=== PATIENT | female | born 1995 | race Caucasian/White ===

== ENCOUNTER 2017-07-18 14:37 | Emergency (ER) | payer MEDICAID ==
[2017-07-18 14:38] VITALS: BMI 34.2
[2017-07-18] MEDS ORDERED: Albuterol-Ipratrop 3 mg / 0.5 (3 ml) UD ONE ×2 (16:00→18:15)
--- NOTE | 2017-07-18 16:44 | C.PDOC ---
History Of Present Illness 22 y/o female with PMHx of Asthma presents to ED with complaints of sob since yesterday and with 1 week history of abdominal pain worse after eating with associated nausea. Patient also complaints of vaginal spotting last week. Patient states she tried to use inhaler with no relief which prompted visit to ED and reports she has scheduled appoint with PMD tomorrow and with [facility] RN CARE COORDINATOR next Monday. LMP 06/25 Time Seen by Provider: 07/18/17 15:53 Chief Complaint (Nursing): Abdominal Pain History Per: Patient History/Exam Limitations: no limitations Onset/Duration Of Symptoms: Days Current Symptoms Are (Timing): Still Present Past Medical History Reviewed: Historical Data, Nursing Documentation, Vital Signs Vital Signs: Last Vital Signs Temp 98.6 F 07/18/17 18:55 Pulse 82 07/18/17 18:55 Resp 16 07/18/17 18:55 BP 106/78 07/18/17 18:55 Pulse Ox 96 07/20/17 11:16 - Medical History PMH: Asthma, Depression Surgical History: No Surg Hx - [facility] Procedures GROUP PSYCHOTHERAPY (05/20/15) INDIVIDUAL PSYCHOTHERAPY, SUPPORTIVE (05/20/15) MEDICATION MANAGEMENT (05/20/15) RABIES VACCINATION (06/29/13) Family History: States: No Known Family Hx - Social History Hx Tobacco Use: No Hx Alcohol Use: No Hx Substance Use: No - Immunization History Hx Tetanus Toxoid Vaccination: Yes Hx Influenza Vaccination: No Hx Pneumococcal Vaccination: No Review Of Systems Constitutional: Negative for: Fever, Chills Respiratory: Positive for: Shortness of Breath Gastrointestinal: Positive for: Nausea, Abdominal Pain. Negative for: Vomiting , Diarrhea Genitourinary: Negative for: Dysuria, Vaginal Discharge, Vaginal Bleeding Musculoskeletal: Negative for: Back Pain Skin: Negative for: Rash Physical Exam - Physical Exam Additional Physical Exam Comments: Patient examined after x1 neb treatment Constitutional: No acute distress. WDWN. lying on stretcher comfortably with friend, talking, using phone. Head: Normocephalic. Atraumatic. Eyes: PERRL. EOMI. ENT: Moist mucous membranes. Neck: Supple. Cardiovascular: Regular rate and rhythm. Chest: No tenderness. Respiratory: Clear to auscultation bilaterally. no wheezing noted (examined after nebulizer treatment received) GI: Soft. Nontender. Nondistended. Normoactive bowel sounds. No rebound. No guarding. Back: No CVA and no mid-line tenderness. Musculoskeletal: No tenderness or swelling of extremities. Skin: No rash. Neurologic: Alert, no focal deficit. ED Course And Treatment O2 Sat by Pulse Oximetry: 96 (RA) Pulse Ox Interpretation: Normal Medical Decision Making Medical Decision Making: pt with clear lungs after neb tx.. pt feels much better. abdomen soft, nd, nt. will check ua and upreg. upreg neg, ua neg for infection. lungs cta bilaterally, abdomen non tender, will d/c with mdi and pepcid. pt has f/u appt tomorrow and next week. Disposition Counseled Patient/Family Regarding: Studies Performed, Diagnosis, Need For Followup, Rx Given - Disposition Referrals: Emelina Best [Staff Provider] - Disposition: HOME/ ROUTINE Disposition Time: 18:36 Condition: IMPROVED Additional Instructions: Please use two puffs from inhaler every 4-6 hours as needed. Avoind junk food, greasy food.Take Pepcid once a day. Follow up as scheduled. 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 - Scribe Statement The provider has reviewed the documentation as recorded by the Kristi Desir All medical record entries made by the Kristi were at my direction and personally dictated by me. I have reviewed the chart and agree that the record accurately reflects my personal performance of the history, physical exam, medical decision making, and the department course for this patient. I have also personally directed, reviewed, and agree with the discharge instructions and disposition.
[2017-07-18 18:28] LABS: SQUAMOUS EPITHIAL 10 /hpf (0-5); URINE BACTERIA RARE (<OCC); URINE BILIRUBIN NEGATIVE (NEGATIVE); URINE BLOOD NEGATIVE (NEGATIVE); URINE CLARITY Hazy (Clear); URINE COLOR Yellow (YELLOW); URINE GLUCOSE (UA) NORMAL (Normal); URINE LEUKOCYTE ESTERASE NEG Leu/uL (Negative); URINE NITRATE NEGATIVE (NEGATIVE); URINE PROTEIN NEGATIVE (NEGATIVE); URINE UROBILINOGEN NORMAL mg/dL (0.2-1.0)
[2017-07-18 19:18] VITALS: BP 106/78; PULSE 82; RESP 16; TEMP 98.6
[2017-07-20 11:15] VITALS: O2SAT 96
== END 2017-07-18 19:00 | disposition home or self-care (01) ==
LOC: C.ER 14:37
DX: J45.909 Unspecified asthma, uncomplicated (principal); K29.70 Gastritis, unspecified, without bleeding

== ENCOUNTER 2017-07-19 00:01 | Emergency (ER) | payer MEDICAID, OTHER ==
[2017-07-19 00:01] VITALS: BMI 34.2
[2017-07-19 00:22] VITALS: RESP 16
[2017-07-19] MEDS ORDERED: Aluminum Hydroxide/Magnesium Hydroxide Susp (30 mL) PO STA (01:04)
--- NOTE | 2017-07-19 01:06 | C.PDOC ---
History Of Present Illness 22 year old female with 1 week history of abdominal pain with associated nausea. Patient states she was seen in ED earlier today for asthma and treated with nebulizer and Pepcid. Patient states when she got home and ate the pain got worse in epigastric region, sharp in nature and associated with nausea. Patient reports she has scheduled appoint with PMD tomorrow. Denies diarrhea or vomiting. Time Seen by Provider: 07/19/17 00:55 Chief Complaint (Nursing): Abdominal Pain History Per: Patient History/Exam Limitations: no limitations Onset/Duration Of Symptoms: Hrs Current Symptoms Are (Timing): Still Present Location Of Pain/Discomfort: Epigastric Radiation Of Pain To:: None Quality Of Discomfort: Unable To Describe Associated Symptoms: Nausea. denies: Fever, Chills, Vomiting, Diarrhea Exacerbating Factors: None Alleviating Factors: None Recent travel outside of the [place]: No Abnormal Vaginal Bleeding: No Past Medical History Reviewed: Historical Data, Nursing Documentation, Vital Signs Vital Signs: Last Vital Signs Temp 98.9 F 07/19/17 02:31 Pulse 84 07/19/17 02:31 Resp 16 07/19/17 02:31 BP 104/65 07/19/17 02:31 Pulse Ox 99 07/19/17 02:31 - Medical History PMH: Asthma, Depression - [facility] Procedures GROUP PSYCHOTHERAPY (05/20/15) INDIVIDUAL PSYCHOTHERAPY, SUPPORTIVE (05/20/15) MEDICATION MANAGEMENT (05/20/15) RABIES VACCINATION (06/29/13) Family History: States: Unknown Family Hx - Social History Hx Tobacco Use: No Hx Alcohol Use: No Hx Substance Use: No - Immunization History Hx Tetanus Toxoid Vaccination: Yes Hx Influenza Vaccination: No Hx Pneumococcal Vaccination: No Review Of Systems Constitutional: Negative for: Fever, Chills Gastrointestinal: Positive for: Nausea, Abdominal Pain. Negative for: Vomiting , Diarrhea Physical Exam - Physical Exam Appears: Non-toxic, No Acute Distress Skin: Normal Color, Warm, Dry Head: Atraumatic, Normacephalic Eye(s): bilateral: Normal Inspection Oral Mucosa: Moist Neck: Normal ROM Chest: Symmetrical, No Tenderness Cardiovascular: Rhythm Regular Respiratory: Normal Breath Sounds, No Rales, No Rhonchi, No Wheezing Gastrointestinal/Abdominal: Soft, No Tenderness, No Distention, No Guarding Extremity: Bilateral: Atraumatic, Normal Color And Temperature, Normal ROM Neurological/Psych: Oriented x3, Normal Speech, Other (No focal deficits) ED Course And Treatment - Laboratory Results Result Diagrams: 07/19/17 01:32 07/19/17 01:32 Lab Interpretation: No Acute Changes O2 Sat by Pulse Oximetry: 97 (Room air) Pulse Ox Interpretation: Normal Medical Decision Making Medical Decision Making: Patient seen in ED yesterday, UA and negative. Patient treated with nebulizer and pepcid and discharge. Plan: * Blood work * Maalox * Pepcid * Toradol Labs reviewed and unremarkable. Patient reevaluated and resting comfortably in no distress. She is watching show on her ipad, laughing with her boyfriend at bedside and drinking iced tea. Patient feels comfortable going home and will be discharged. Patient given follow up instructions. Instructed to return to ER if symptoms worsen or new symptoms arise. Disposition Counseled Patient/Family Regarding: Diagnosis, Need For Followup, Rx Given - Disposition Referrals: [facility] [Outside] [email or web address] [Outside] Disposition: HOME/ ROUTINE Disposition Time: 02:11 Condition: IMPROVED Additional Instructions: Your labs were normal. Take omeprazole daily. Follow up with your primary doctor and GI for further evaluation. Prescriptions: Omeprazole 20 mg PO DAILY #20 capsule. 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 - Scribe Statement The provider has reviewed the documentation as recorded by the Scribолег Ovalle All medical record entries made by the Scribe were at my direction and personally dictated by me. I have reviewed the chart and agree that the record accurately reflects my personal performance of the history, physical exam, medical decision making, and the department course for this patient. I have also personally directed, reviewed, and agree with the discharge instructions and disposition.
[2017-07-19 01:37] LABS: BASO % 0.2 % (0.0-2.0); EOS # 0.1 K/uL (0.0-0.7); EOS % 1.8 % (0.0-4.0); HEMOGLOBIN 14.3 g/dL (11.0-16.0); LYMPH # 1.5 K/uL (1.0-4.3); LYMPH % 23.1 % (20.0-40.0); MEAN CELL VOLUME 84.9 fL (81.0-99.0); MEAN CORPUSCULAR HEMOGLOBIN 28.9 pg (27.0-31.0); MEAN PLATELET VOLUME 7.7 fL (7.2-11.7); MONO # 0.3 K/uL (0.0-0.8); MONO % 5.5 % (0.0-10.0); NEUT # 4.4 K/uL (1.8-7.0); NEUT % 69.4 % (50.0-75.0); RBC 4.95 Mil/uL (3.80-5.20); RED CELL DISTRIBUTION WIDTH 13.2 % (11.5-14.5); WHITE BLOOD COUNT 6.3 K/uL (4.8-10.8)
[2017-07-19] MEDS ORDERED: Aluminum Hydroxide/Magnesium Hydroxide Susp (30 mL) ONE (01:39)
[2017-07-19 01:54] LABS: ALB/GLOB RATIO 1.4 (1.0-2.1); ALBUMIN 4.5 g/dL (3.5-5.0); ALT/SGPT 40 U/L (9-52); AST/SGOT 22 U/L (14-36); BLOOD UREA NITROGEN 13 mg/dL (7-17); CALCIUM 8.6 mg/dl (8.6-10.4); GFR AFRICAN-AMERICAN > 60; GFR NON-AFRICAN AMERICAN > 60; LIPASE 74 U/L (23-300)
[2017-07-19 02:31] VITALS: BP 104/65; PULSE 84; TEMP 98.9
[2017-07-19 02:56] VITALS: O2SAT 97
== END 2017-07-19 02:52 | disposition home or self-care (01) ==
LOC: C.ER 00:01
DX: K29.70 Gastritis, unspecified, without bleeding (principal)
CPT/HCPCS: 80053; 83690; 85025; 96374; 96375; 99283; J1885

== ENCOUNTER 2018-04-25 19:23 | Emergency (ER) | payer SELFPAY ==
[2018-04-25 19:23] VITALS: BMI 34.2
[2018-04-25 19:32] VITALS: BP 135/81; PULSE 68; RESP 19; TEMP 98.8; O2SAT 98
[2018-04-25] MEDS ORDERED: Sodium Chloride 0.9% 1,000 ML IV ONE (20:49)
--- NOTE | 2018-04-25 20:50 | C.PDOC ---
History Of Present Illness 23 year old female presents to the ED for evaluation of headache to the frontal area associated with photophobia, dizziness, and nausea that began today. Patient reports nausea for the last 4 days and decreased food intake. Notes she has been going through a stressful time concerning house since she was recently evicted from her home. Also reports finishing her menses yesterday which lasted 1 week, normally they last 3 days, prior to her last menses states she missed her period for 3 months and believed to be . Denies fever, chills, vomiting, abdominal pain, shortness of breath, chest pain, cough and any other associated symptoms. Time Seen by Provider: 04/25/18 20:42 Chief Complaint (Nursing): Dizziness/Lightheaded History Per: Patient History/Exam Limitations: no limitations Onset/Duration Of Symptoms: Hrs Current Symptoms Are (Timing): Still Present Past Medical History Reviewed: Historical Data, Nursing Documentation, Vital Signs Vital Signs: Last Vital Signs Temp 98.8 F 04/25/18 19:25 Pulse 68 04/25/18 19:25 Resp 19 04/25/18 19:25 BP 135/81 04/25/18 19:25 Pulse Ox 98 04/25/18 19:25 - Medical History PMH: Asthma, Depression - [facility] Procedures GROUP PSYCHOTHERAPY (05/20/15) INDIVIDUAL PSYCHOTHERAPY, SUPPORTIVE (05/20/15) MEDICATION MANAGEMENT (05/20/15) RABIES VACCINATION (06/29/13) Family History: States: Unknown Family Hx - Social History Hx Tobacco Use: Yes (2-3 cigarettes a day) Hx Alcohol Use: Yes Hx Substance Use: No - Immunization History Hx Tetanus Toxoid Vaccination: No Hx Influenza Vaccination: No Hx Pneumococcal Vaccination: No Review Of Systems Constitutional: Negative for: Fever, Chills Cardiovascular: Negative for: Chest Pain Respiratory: Negative for: Cough, Shortness of Breath Gastrointestinal: Positive for: Nausea. Negative for: Vomiting, Abdominal Pain Neurological: Positive for: Headache (to the frontal area.), Dizziness, Other (photophobia.) Physical Exam - Physical Exam Appears: Non-toxic, No Acute Distress Skin: Normal Color, Warm, Dry Head: Atraumatic, Normacephalic Eye(s): bilateral: Normal Inspection, EOMI Oral Mucosa: Moist Neck: Normal ROM, Supple Chest: Symmetrical, No Deformity Cardiovascular: Rhythm Regular, No Murmur Respiratory: Normal Breath Sounds, No Rales, No Rhonchi, No Wheezing Gastrointestinal/Abdominal: Normal Exam, Soft, No Tenderness Extremity: Normal ROM (x4) Neurological/Psych: Oriented x3, Normal Speech Gait: Steady ED Course And Treatment - Laboratory Results Result Diagrams: 04/25/18 21:03 04/25/18 21:03 Lab Interpretation: No Acute Changes O2 Sat by Pulse Oximetry: 98 (RA) Pulse Ox Interpretation: Normal Medical Decision Making Medical Decision Making: Impression: headache Plan: --Blood sent. --Urinalysis --Urine HCG Progress: Patient assessed and examined and given Reglan. Labs reviewed and unremarkable. On re-eval, patient is resting comfortably, is tolerating PO, and pain has improved. Patient has no neurologic deficit, photophobia, rash, fever, or nuchal rigidity. Discussed lab results and neg test. Patient was instructed to follow up with physician/clinic in 1-2 days. Disposition Counseled Patient/Family Regarding: Diagnosis, Need For Followup - Disposition Disposition: HOME/ ROUTINE Disposition Time: 21:54 Condition: GOOD Additional Instructions: Follow up with your primary medical doctor or clinic in 2-5 days for further evaluation. Take medications as prescribed. Return to the emergency department at any time if symptoms persist or worsen. 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 - Scribe Statement The provider has reviewed the documentation as recorded by the Scribe (La Christensen) All medical record entries made by the Scribe were at my direction and personally dictated by me. I have reviewed the chart and agree that the record accurately reflects my personal performance of the history, physical exam, medical decision making, and the department course for this patient. I have also personally directed, reviewed, and agree with the discharge instructions and disposition.
[2018-04-25 21:07] LABS: HEMOGLOBIN 14.1 g/dL (11.0-16.0); MEAN CELL VOLUME 87.9 fL (81.0-99.0); MEAN CORPUSCULAR HEMOGLOBIN 30.9 pg (27.0-31.0); MEAN CORPUSCULAR HGB CONC 35.1 g/dL (33.0-37.0); MEAN PLATELET VOLUME 7.7 fL (7.2-11.7); RBC 4.57 Mil/uL (3.80-5.20); RED CELL DISTRIBUTION WIDTH 13.4 % (11.5-14.5); WHITE BLOOD COUNT 8.8 K/uL (4.8-10.8)
[2018-04-25] MEDS ORDERED: Sodium Chloride 0.9% 1,000 ML ONE (21:15)
[2018-04-25 21:19] LABS: HCG,QUALITATIVE URINE NEGATIVE (NEGATIVE)
[2018-04-25 21:19] LABS: ALB/GLOB RATIO 1.6 (1.0-2.1); ALBUMIN 4.4 g/dL (3.5-5.0); ALT/SGPT 44 U/L (9-52); AST/SGOT 20 U/L (14-36); BLOOD UREA NITROGEN 16 mg/dL (7-17); CALCIUM 9.4 mg/dl (8.6-10.4); GFR NON-AFRICAN AMERICAN > 60
[2018-04-25 21:24] LABS: SQUAMOUS EPITHIAL 2 /hpf (0-5); URINE BACTERIA OCC (<OCC); URINE BILIRUBIN NEGATIVE (NEGATIVE); URINE BLOOD 3+ (NEGATIVE); URINE CLARITY Clear (Clear); URINE COLOR Yellow (YELLOW); URINE GLUCOSE (UA) NORMAL (Normal); URINE LEUKOCYTE ESTERASE TRACE Leu/uL (Negative); URINE PROTEIN NEGATIVE (NEGATIVE); URINE UROBILINOGEN NORMAL mg/dL (0.2-1.0)
== END 2018-04-25 22:00 | disposition home or self-care (01) ==
LOC: C.ER 19:23
DX: R51 Headache (principal)
CPT/HCPCS: 80053; 81001; 82948; 84703; 85027; 96360; 99285; J7030